=== PATIENT | male | born 2000 | race Hispanic/Latino ===

== ENCOUNTER 2022-04-22 16:35 | Emergency (ER) | payer BC ==
[2022-04-22] MEDS ORDERED: CEFAZOLIN 2 GM VIAL ONE (16:55)
[2022-04-22] MEDS ORDERED: Boostrix 0.5 ML (Tdap) VIAL (>/=7 yrs of age) ONE (16:55)
[2022-04-22] MEDS ORDERED: HYDROmorphone 0.5 MG/0.5 ML SYRINGE ONE (16:56)
[2022-04-22] MEDS ORDERED: Lidocaine 1% w/Epinephrine 1:100K 20 ML VIAL ONE (17:02)
[2022-04-22] MEDS ORDERED: Ketorolac Tromethamine 30 MG/ML VIAL ONE (19:00)
[2022-04-22] MEDS ORDERED: HYDROcodone/Acetaminophen 10/325 mg Tablet ONE (19:00)
== END 2022-04-22 19:13 | disposition home or self-care (01) ==
LOC: ERS 16:35
DX: S86.221A Laceration of muscle(s) and tendon(s) of anterior muscle group at lower leg level, right leg, initial encounter (principal); W29.3XXA Contact with powered garden and outdoor hand tools and machinery, initial encounter; Z23 Encounter for immunization
CPT/HCPCS: 12032; 90471; 90715; 96372; 96374; 96375; J1170; J1885